=== PATIENT | male | born 1960 | race Caucasian/White ===

== ENCOUNTER → 2018-07-17 09:06 | Outpatient (CLI) | payer OTHER, SELFPAY ==
[2018-07-17 10:51] LABS: Hemoglobin A1C% w Est Avg Glu 5.3 % (4.0-6.0)
[2018-07-17 11:12] LABS: BUN Creatinine Ratio 17.5 (6-22); Blood Urea Nitrogen 14 mg/dL (9-20); Calcium 9.1 mg/dL (8.4-10.2); Carbon Dioxide 36 mmol/L (22-32); Chloride 96 mmol/L (98-107); Cholesterol 185 mg/dL (140-199); Estimated Glomerular Filt Rate > 60.0 mL/min (>60); Glucose 104 mg/dL (70-100); HDL Cholesterol 41 mg/dL (40-60); HEMOLYSIS < 15 (0-50); LDL Cholesterol Calculated 121 mg/dL (<100); Sodium 142 mmol/L (137-145); Triglycerides 114 mg/dL (35-150)
[2018-07-17 11:18] LABS: Potassium 2.7 mmol/L (3.4-5.1)
== END ==
PROVIDERS: Family Provider Family Medicine; PCP Family Medicine; Visit Provider Family Medicine
DX: I10 Essential (primary) hypertension (principal)
CPT/HCPCS: 36415; 80048; 80061; 83036

== ENCOUNTER → 2018-07-21 09:44 | Outpatient (CLI) | payer OTHER, SELFPAY ==
[2018-07-21 11:43] LABS: BUN Creatinine Ratio 17.5 (6-22); Blood Urea Nitrogen 14 mg/dL (9-20); Calcium 9.3 mg/dL (8.4-10.2); Carbon Dioxide 36 mmol/L (22-32); Chloride 97 mmol/L (98-107); Estimated Glomerular Filt Rate > 60.0 mL/min (>60); Glucose 111 mg/dL (70-100); HEMOLYSIS < 15 (0-50); Potassium 3.1 mmol/L (3.4-5.1); Sodium 142 mmol/L (137-145)
== END ==
PROVIDERS: Family Provider Family Medicine; PCP Family Medicine; Visit Provider Family Medicine
DX: E87.6 Hypokalemia (principal)
CPT/HCPCS: 36415; 80048

== ENCOUNTER → 2018-08-10 15:35 | Outpatient (CLI) | payer OTHER, SELFPAY ==
[2018-08-10 17:02] LABS: Blood Urea Nitrogen 19 mg/dL (9-20); Calcium 8.9 mg/dL (8.4-10.2); Carbon Dioxide 32 mmol/L (22-32); Chloride 104 mmol/L (98-107); Estimated Glomerular Filt Rate > 60.0 mL/min (>60); Glucose 133 mg/dL (80-110); HEMOLYSIS < 15 (0-50); Potassium 3.3 mmol/L (3.4-5.1); Sodium 144 mmol/L (137-145)
== END ==
PROVIDERS: Family Provider Family Medicine; PCP Family Medicine; Visit Provider Family Medicine
DX: I10 Essential (primary) hypertension (principal)
CPT/HCPCS: 36415; 80048

== ENCOUNTER → 2018-09-24 09:25 | Outpatient (CLI) | payer OTHER, SELFPAY ==
[2018-09-24 10:15] LABS: Hemoglobin A1C% w Est Avg Glu 5.1 % (4.0-6.0)
[2018-09-24 10:28] LABS: Blood Urea Nitrogen 12 mg/dL (9-20); Calcium 9.1 mg/dL (8.4-10.2); Carbon Dioxide 31 mmol/L (22-32); Chloride 101 mmol/L (98-107); Estimated Glomerular Filt Rate > 60.0 mL/min (>60); Glucose 102 mg/dL (80-110); HEMOLYSIS < 15 (0-50); Potassium 3.2 mmol/L (3.4-5.1); Sodium 143 mmol/L (137-145)
== END ==
PROVIDERS: PCP Family Medicine; Visit Provider Family Medicine
DX: I10 Essential (primary) hypertension (principal)
CPT/HCPCS: 36415; 80048; 83036

== ENCOUNTER → 2018-11-09 09:40 | Outpatient (CLI) | payer OTHER, SELFPAY ==
[2018-11-09 14:52] LABS: Collection Time Urine 24 Hours; Creatinine 24 Hour Urine 2460 mg/day (1000-2000); Creatinine Urine Random 49.2 mg/dL; Sodium 24 Hour Urine 200 mmol/day (40-220); Sodium Urine Random 40 mmol/L (30-90); Total Volume Urine 5000 mL
== END ==
PROVIDERS: PCP Family Medicine; Visit Provider Internal Medicine Nephrology
DX: E26.9 Hyperaldosteronism, unspecified (principal)
CPT/HCPCS: 82088; 82570; 84300

== ENCOUNTER → 2018-11-30 15:46 | Outpatient (CLI) | payer OTHER, SELFPAY ==
[2018-11-30 16:41] LABS: BUN Creatinine Ratio 16.3 (6-22); Blood Urea Nitrogen 13 mg/dL (9-20); Calcium 9.1 mg/dL (8.4-10.2); Carbon Dioxide 33 mmol/L (22-32); Chloride 100 mmol/L (98-107); Estimated Glomerular Filt Rate > 60.0 mL/min (>60); Glucose 93 mg/dL (80-110); HEMOLYSIS 18 (0-50); Potassium 3.2 mmol/L (3.4-5.1); Sodium 141 mmol/L (137-145)
== END ==
PROVIDERS: Family Provider Family Medicine; PCP Family Medicine; Visit Provider Internal Medicine Nephrology
DX: E26.9 Hyperaldosteronism, unspecified (principal)
CPT/HCPCS: 36415; 80048

== ENCOUNTER → 2018-12-01 09:14 | Outpatient (CLI) | payer OTHER, SELFPAY ==
--- NOTE | 2018-12-01 | DI.CT.S_ITS ---
PROCEDURE: CT ABDOMEN WO/W CON INDICATIONS: Hyperaldosteronism, unspecified TECHNIQUE: Noncontrast 3 mm thick sections acquired from the diaphragms to the iliac crests. After the administration of intravenous contrast, 3 mm thick venous-phase and 10-minute delayed images acquired from the diaphragms to the iliac crests. For radiation dose reduction, the following was used: automated exposure control, adjustment of mA and/or kV according to patient size. COMPARISON: None. FINDINGS: Image quality: Excellent. Lung bases: There is minimal dependent atelectasis. Heart size is normal. Adrenal glands: There is mild nodular thickening of the right adrenal gland measuring up to approximately 1 cm in width. This demonstrates absolute washout values of greater than 60% suggestive of an adenoma. No left adrenal nodule. Solid organs: Evaluation of the liver demonstrates no focal hepatic lesions. The gallbladder appears within normal limits without calcified gallstones. There is a small phrygian cap. Biliary system is non-dilated. Pancreas enhances normally. No peripancreatic fat stranding or fluid collections. No pancreatic duct dilatation. The spleen is normal in size. Kidneys demonstrate no hydronephrosis. There is mild nonspecific perinephric stranding bilaterally. Peritoneum and bowel: Visualized bowel loops are normal in caliber and wall thickness. There is colonic diverticulosis without acute diverticulitis. No free fluid or air. Nodes and vessels: No retroperitoneal or mesenteric adenopathy by size criteria. Aorta and inferior vena cava are normal in size. Miscellaneous: No ventral hernias. Bones: No suspicious bony lesions. No vertebral body compression fractures. IMPRESSION: 1. Small right adrenal nodule most likely representing an adenoma. Dictated by: Shreyas Segovia M.D. on 12/01/2018 at 13:35 Approved by: Shreyas Segovia M.D. on 12/01/2018 at 14:00
== END ==
PROVIDERS: Family Provider Family Medicine; PCP Family Medicine; Visit Provider Internal Medicine Nephrology
DX: E27.9 Disorder of adrenal gland, unspecified (principal); E26.9 Hyperaldosteronism, unspecified
CPT/HCPCS: 74170; Q9967

== ENCOUNTER → 2019-02-22 13:51 | Outpatient (CLI) | payer OTHER, SELFPAY ==
[2019-02-22 15:03] LABS: BUN Creatinine Ratio 17.5 (6-22); Blood Urea Nitrogen 14 mg/dL (9-20); Calcium 9.2 mg/dL (8.4-10.2); Carbon Dioxide 31 mmol/L (22-32); Chloride 99 mmol/L (98-107); Estimated Glomerular Filt Rate > 60.0 mL/min (>60); Glucose 129 mg/dL (80-110); HEMOLYSIS < 15 (0-50); Potassium 3.8 mmol/L (3.4-5.1); Sodium 140 mmol/L (137-145)
== END ==
PROVIDERS: PCP Family Medicine; Visit Provider Internal Medicine Nephrology
DX: E26.9 Hyperaldosteronism, unspecified (principal)
CPT/HCPCS: 36415; 80048

== ENCOUNTER → 2019-03-18 12:02 | Outpatient (CLI) | payer OTHER, SELFPAY ==
[2019-03-18 12:53] LABS: Blood Urea Nitrogen 19 mg/dL (9-20); Calcium 9.7 mg/dL (8.4-10.2); Carbon Dioxide 29 mmol/L (22-32); Chloride 100 mmol/L (98-107); Estimated Glomerular Filt Rate > 60.0 mL/min (>60); Glucose 105 mg/dL (80-110); HEMOLYSIS < 15 (0-50); Potassium 4.6 mmol/L (3.4-5.1); Sodium 138 mmol/L (137-145)
== END ==
PROVIDERS: PCP Family Medicine; Visit Provider Internal Medicine Nephrology
DX: E26.9 Hyperaldosteronism, unspecified (principal)
CPT/HCPCS: 36415; 80048

== ENCOUNTER → 2019-04-07 09:47 | Outpatient (CLI) | payer OTHER, SELFPAY ==
[2019-04-07 11:14] LABS: Blood Urea Nitrogen 21 mg/dL (9-20); Calcium 9.9 mg/dL (8.4-10.2); Carbon Dioxide 28 mmol/L (22-32); Chloride 103 mmol/L (98-107); Estimated Glomerular Filt Rate > 60.0 mL/min (>60); Glucose 118 mg/dL (80-110); HEMOLYSIS < 15 (0-50); Potassium 5.1 mmol/L (3.4-5.1); Sodium 140 mmol/L (137-145)
== END ==
PROVIDERS: PCP Family Medicine; Referring Provider Internal Medicine Nephrology; Visit Provider Internal Medicine Nephrology
DX: E26.9 Hyperaldosteronism, unspecified (principal)
CPT/HCPCS: 36415; 80048

== ENCOUNTER → 2019-04-15 11:36 | Outpatient (CLI) | payer OTHER, SELFPAY ==
[2019-04-15 13:19] LABS: BUN Creatinine Ratio 22.3 (6-22); Blood Urea Nitrogen 29 mg/dL (9-20); Calcium 9.6 mg/dL (8.4-10.2); Carbon Dioxide 24 mmol/L (22-32); Chloride 103 mmol/L (98-107); Estimated Glomerular Filt Rate 56.3 mL/min (>60); Glucose 99 mg/dL (80-110); HEMOLYSIS < 15 (0-50); Sodium 141 mmol/L (137-145)
== END ==
PROVIDERS: PCP Family Medicine; Referring Provider Internal Medicine Nephrology; Visit Provider Internal Medicine Nephrology
DX: E26.9 Hyperaldosteronism, unspecified (principal)
CPT/HCPCS: 36415; 80048; 83735

== ENCOUNTER → 2019-04-26 16:32 | Outpatient (CLI) | payer OTHER, SELFPAY ==
[2019-04-26 17:44] LABS: Blood Urea Nitrogen 20 mg/dL (9-20); Calcium 9.6 mg/dL (8.4-10.2); Carbon Dioxide 23 mmol/L (22-32); Chloride 104 mmol/L (98-107); Estimated Glomerular Filt Rate > 60.0 mL/min (>60); Glucose 87 mg/dL (80-110); HEMOLYSIS < 15 (0-50); Potassium 4.8 mmol/L (3.4-5.1); Sodium 139 mmol/L (137-145)
== END ==
PROVIDERS: PCP Family Medicine; Referring Provider Internal Medicine Nephrology; Visit Provider Internal Medicine Nephrology
DX: E26.9 Hyperaldosteronism, unspecified (principal); E27.9 Disorder of adrenal gland, unspecified
CPT/HCPCS: 36415; 80048

== ENCOUNTER → 2019-05-25 11:41 | Outpatient (CLI) | payer OTHER, SELFPAY ==
[2019-05-25 12:56] LABS: Albumin 4.7 g/dL (3.5-5.0); HEMOLYSIS < 15 (0-50); Magnesium 2.1 mg/dL (1.6-2.3)
[2019-05-25 18:56] LABS: BUN Creatinine Ratio 24.5 (6-22); Blood Urea Nitrogen 26 mg/dL (9-20); Calcium 10.1 mg/dL (8.4-10.2); Carbon Dioxide 21 mmol/L (22-32); Chloride 103 mmol/L (98-107); Estimated Glomerular Filt Rate > 60.0 mL/min (>60); Glucose 96 mg/dL (80-110); Phosphorous 4.3 mg/dL (2.3-3.7); Sodium 136 mmol/L (137-145)
[2019-05-25 18:57] LABS: Potassium 5.5 mmol/L (3.4-5.1)
== END ==
PROVIDERS: PCP Family Medicine; Referring Provider Internal Medicine Nephrology; Visit Provider Internal Medicine Nephrology
DX: E26.9 Hyperaldosteronism, unspecified (principal)
CPT/HCPCS: 36415; 80069; 83735

== ENCOUNTER → 2019-06-01 10:00 | Outpatient (CLI) | payer OTHER, SELFPAY ==
[2019-06-01 11:30] LABS: Albumin 4.9 g/dL (3.5-5.0); HEMOLYSIS < 15 (0-50); Magnesium 2.4 mg/dL (1.6-2.3)
[2019-06-01 18:14] LABS: BUN Creatinine Ratio 25.6 (6-22); Blood Urea Nitrogen 32 mg/dL (9-20); Calcium 9.9 mg/dL (8.4-10.2); Carbon Dioxide 22 mmol/L (22-32); Chloride 103 mmol/L (98-107); Estimated Glomerular Filt Rate 58.9 mL/min (>60); Glucose 114 mg/dL (80-110); Sodium 136 mmol/L (137-145)
[2019-06-01 18:15] LABS: Potassium 5.8 mmol/L (3.4-5.1)
== END ==
PROVIDERS: PCP Family Medicine; Referring Provider Internal Medicine Nephrology; Visit Provider Internal Medicine Nephrology
DX: E26.9 Hyperaldosteronism, unspecified (principal)
CPT/HCPCS: 36415; 80069; 83735

== ENCOUNTER → 2019-06-04 10:18 | Outpatient (CLI) | payer OTHER, SELFPAY ==
[2019-06-04 11:41] LABS: BUN Creatinine Ratio 22.3 (6-22); Blood Urea Nitrogen 27 mg/dL (9-20); Calcium 9.9 mg/dL (8.4-10.2); Carbon Dioxide 26 mmol/L (22-32); Chloride 101 mmol/L (98-107); Estimated Glomerular Filt Rate > 60.0 mL/min (>60); Glucose 112 mg/dL (80-110); HEMOLYSIS < 15 (0-50); Magnesium 2.3 mg/dL (1.6-2.3); Phosphorous 4.6 mg/dL (2.3-3.7); Sodium 137 mmol/L (137-145)
[2019-06-04 11:42] LABS: Potassium 5.4 mmol/L (3.4-5.1)
== END ==
PROVIDERS: PCP Family Medicine; Referring Provider Internal Medicine Nephrology; Visit Provider Internal Medicine Nephrology
DX: E87.5 Hyperkalemia (principal); E26.9 Hyperaldosteronism, unspecified
CPT/HCPCS: 36415; 80069; 83735

== ENCOUNTER → 2019-06-09 10:07 | Outpatient (CLI) | payer OTHER, SELFPAY ==
[2019-06-09 12:23] LABS: BUN Creatinine Ratio 21.6 (6-22); Blood Urea Nitrogen 25 mg/dL (9-20); Calcium 9.8 mg/dL (8.4-10.2); Carbon Dioxide 23 mmol/L (22-32); Chloride 104 mmol/L (98-107); Estimated Glomerular Filt Rate > 60.0 mL/min (>60); Glucose 103 mg/dL (80-110); HEMOLYSIS < 15 (0-50); Potassium 5.3 mmol/L (3.4-5.1); Sodium 136 mmol/L (137-145)
== END ==
PROVIDERS: PCP Family Medicine; Referring Provider Internal Medicine Nephrology; Visit Provider Internal Medicine Nephrology
DX: E87.5 Hyperkalemia (principal)
CPT/HCPCS: 36415; 80048

== ENCOUNTER → 2019-06-15 09:45 | Outpatient (CLI) | payer OTHER, SELFPAY ==
[2019-06-15 12:16] LABS: BUN Creatinine Ratio 15.9 (6-22); Blood Urea Nitrogen 17 mg/dL (9-20); Calcium 9.6 mg/dL (8.4-10.2); Carbon Dioxide 26 mmol/L (22-32); Chloride 103 mmol/L (98-107); Estimated Glomerular Filt Rate > 60.0 mL/min (>60); Glucose 105 mg/dL (80-110); HEMOLYSIS < 15 (0-50); Potassium 5.2 mmol/L (3.4-5.1); Sodium 139 mmol/L (137-145)
[2019-06-15 12:44] LABS: Cortisol AM (Before 10AM) 10.1 ug/dL (4.46-22.7)
[2019-06-18 01:07] LABS: Renin Activity 0.642 ng/mL/hr (0.167-5.380)
== END ==
PROVIDERS: PCP Family Medicine; Referring Provider Internal Medicine Nephrology; Visit Provider Internal Medicine Nephrology
DX: E87.5 Hyperkalemia (principal); E89.6 Postprocedural adrenocortical (-medullary) hypofunction
CPT/HCPCS: 36415; 80048; 82088; 82533; 84244

== ENCOUNTER → 2019-07-02 08:23 | Outpatient (CLI) | payer OTHER, SELFPAY ==
[2019-07-02 09:55] LABS: BUN Creatinine Ratio 21.8 (6-22); Blood Urea Nitrogen 27 mg/dL (9-20); Calcium 9.8 mg/dL (8.4-10.2); Carbon Dioxide 25 mmol/L (22-32); Chloride 103 mmol/L (98-107); Estimated Glomerular Filt Rate 59.5 mL/min (>60); Glucose 109 mg/dL (80-110); HEMOLYSIS < 15 (0-50); Potassium 5.2 mmol/L (3.4-5.1); Sodium 138 mmol/L (137-145)
[2019-07-07 01:19] LABS: Plama Renin, LC/MS/MS 0.932 ng/mL/hr (0.167-5.380)
== END ==
PROVIDERS: PCP Family Medicine; Referring Provider Internal Medicine Nephrology; Visit Provider Internal Medicine Nephrology
DX: E87.5 Hyperkalemia (principal); E26.9 Hyperaldosteronism, unspecified
CPT/HCPCS: 36415; 80048; 82088; 84244

== ENCOUNTER → 2019-07-05 11:34 | Outpatient (CLI) | payer OTHER, SELFPAY ==
--- NOTE | 2019-07-05 | DI.MRI.S_ITS ---
PROCEDURE: MR KNEE LT WO CON INDICATIONS: Pain in left knee TECHNIQUE: Noncontrast sagittal PD fast spin echo and T2 fast spin echo with fat saturation, sagittal 3-D FLASH with fat saturation; coronal T1 spin echo and PD fast spin echo with fat saturation, and axial PD fast spin echo with fat saturation through the knee. COMPARISON: [facility], CR, XR KNEE 3 VIEWS LEFT, 06/21/2019, 14:30. FINDINGS: Image quality: Excellent. Menisci: Radial tearing of the posterior horn medial meniscus at the meniscal root ligament insertion site. Amorphous and linear high signal intensity within the medial meniscal body and posterior horn is present, demonstrating inferior articular surface extension, indicating complex tearing. Lateral meniscus is intact. Cruciate ligaments: The anterior and posterior cruciate ligaments appear intact. Medial structures: The medial collateral ligament appears intact. Visualized portions of the pes anserinus tendons appear normal. No abnormal bursal fluid. Lateral structures: The lateral collateral ligament, long and short heads of the biceps femoris tendon appear intact. The popliteus tendon appears normal. Iliotibial band appears normal. Anterior structures: The quadriceps and patellar tendons appear intact. Patellar alignment is normal. No femoral trochlear dysplasia or ventral trochlear prominence. No edema in the infrapatellar fat pad. Bones and cartilage: Mild ill-defined T2 signal elevation within the posterior weightbearing aspect of the medial tibial plateau. Mild diffuse articular cartilage loss overlies the weightbearing aspects of the medial femoral condyle and medial tibial plateau. Severe articular cartilage loss overlies the medial patellar apex. Moderate to cartilage loss overlies the lateral patellar facet inferiorly. Moderate articular cartilage loss overlies the medial facet. Joint space: There is a moderate knee joint effusion and a moderate Keith's cyst. Normal appearing synovial plicae are incidentally noted. IMPRESSION: 1. Medial meniscal tearing as described above. 2. Medial and patellofemoral compartment articular cartilage loss. 3. Knee joint effusion and Keith's cyst. Dictated by: Titi Hawkins M.D. on 07/05/2019 at 15:02 Approved by: Titi Hawkins M.D. on 07/05/2019 at 15:05
== END ==
PROVIDERS: PCP Family Medicine; Referring Provider Family Medicine; Visit Provider Family Medicine
DX: M25.562 Pain in left knee (principal); S83.232A Complex tear of medial meniscus, current injury, left knee, initial encounter; M71.22 Synovial cyst of popliteal space [Baker], left knee; M25.462 Effusion, left knee
CPT/HCPCS: 73721

== ENCOUNTER → 2019-08-10 11:18 | Outpatient (CLI) | payer OTHER, SELFPAY ==
[2019-08-10 12:13] LABS: Add Manual Diff / Slide Review NO; Basophils Absolute Auto 0 /uL (0-100); Eosinophils Absolute Auto 100 /uL (0-450); Eosinophils Percent Auto 1.7 % (2-4); Hematocrit 41.8 % (41-53); Hemoglobin 14.6 g/dL (13.5-17.5); Lymphocytes Absolute Auto 1400 /uL (1100-4500); Lymphocytes Percent Auto 30.7 % (25-40); Mean Corpuscular HGB Conc 34.9 % (30-36); Mean Corpuscular Hemoglobin 31.5 PG (26-34); Mean Corpuscular Volume 90.3 fL (80-100); Monocytes Absolute Auto 300 /uL (0-900); Monocytes Percent Auto 6.3 % (3-14); Neutrophils Absolute Auto 2800 /uL (1500-7000); Neutrophils Percent Auto 60.3 % (50-75); Platelet Count 219 X10^3/uL (150-400); Red Blood Cell Count 4.63 X10^6/uL (4.5-5.9); Red Cell Distribution Width 13.4 % (11.6-14.8); White Blood Cell Count 4.6 X10^3/uL (4.5-11.0)
[2019-08-10 12:35] LABS: Carbon Dioxide 25 mmol/L (22-32); Chloride 104 mmol/L (98-107); HEMOLYSIS < 15 (0-50); Potassium 4.8 mmol/L (3.4-5.1); Sodium 137 mmol/L (137-145)
== END ==
PROVIDERS: PCP Family Medicine; Referring Provider Orthopaedic Surgery; Visit Provider Orthopaedic Surgery
DX: Z01.818 Encounter for other preprocedural examination (principal); Z01.812 Encounter for preprocedural laboratory examination
CPT/HCPCS: 36415; 80051; 85025; 93005

== ENCOUNTER → 2020-08-02 11:06 | Outpatient (CLI) | payer OTHER, SELFPAY ==
[2020-08-02 12:07] LABS: Add Manual Diff / Slide Review NO; Basophils Absolute Auto 0 /uL (0-100); Basophils Percent Auto 0.8 % (0-2); Eosinophils Absolute Auto 100 /uL (0-450); Hematocrit 44.9 % (41-53); Hemoglobin 15.3 g/dL (13.5-17.5); Lymphocytes Absolute Auto 1500 /uL (1100-4500); Mean Corpuscular HGB Conc 34.1 % (30-36); Mean Corpuscular Hemoglobin 30.7 PG (26-34); Mean Corpuscular Volume 90.1 fL (80-100); Monocytes Absolute Auto 400 /uL (0-900); Neutrophils Absolute Auto 2800 /uL (1500-7000); Neutrophils Percent Auto 58.2 % (50-75); Platelet Count 213 X10^3/uL (150-400); Red Blood Cell Count 4.98 X10^6/uL (4.5-5.9); Red Cell Distribution Width 13.7 % (11.6-14.8); White Blood Cell Count 4.9 X10^3/uL (4.5-11.0)
[2020-08-02 12:18] LABS: Hemoglobin A1C% w Est Avg Glu 5.6 % (4.0-6.0)
[2020-08-02 12:21] LABS: Alanine Aminotransferase 19 IU/L (<50); Albumin 4.8 g/dL (3.5-5.0); Albumin Globulin Ratio 1.5 (1.0-2.8); Alkaline Phosphatase 86 U/L (38-126); Aspartate Aminotransferase 31 IU/L (17-59); BUN Creatinine Ratio 20.5 (6-22); Bilirubin Total 0.8 mg/dL (0.2-1.3); Blood Urea Nitrogen 25 mg/dL (9-20); Calcium 9.6 mg/dL (8.4-10.2); Carbon Dioxide 24 mmol/L (22-32); Chloride 103 mmol/L (98-107); Cholesterol 259 mg/dL (140-199); Estimated Glomerular Filt Rate > 60.0 mL/min (>60); Globulin 3.1 g/dL (1.7-4.1); Glucose 118 mg/dL (80-110); HDL Cholesterol 43 mg/dL (40-60); HEMOLYSIS < 15 (0-50); LDL Cholesterol Calculated 183 mg/dL (<100); Potassium 4.9 mmol/L (3.4-5.1); Sodium 137 mmol/L (137-145); Total Protein 7.9 g/dL (6.3-8.2); Triglycerides 167 mg/dL (35-150)
[2020-08-03 23:36] LABS: HCV AB <0.1 s/co ratio (0.0-0.9)
[2020-08-06 18:36] LABS: Renin Activity 2.347 ng/mL/hr (0.167-5.380)
== END ==
PROVIDERS: PCP Family Medicine; Referring Provider Family Medicine; Visit Provider Family Medicine
DX: I10 Essential (primary) hypertension (principal)
CPT/HCPCS: 36415; 80053; 80061; 82088; 83036; 84244; 85025; 86803

== ENCOUNTER 2022-05-17 11:36 | Emergency (ER) | payer OTHER, SELFPAY ==
[2022-05-17] VITALS (54 sets, daily range): BP systolic 151–195; BP diastolic 85–112; PULSE 77–94; RESP 16–20; TEMP 36.2; O2SAT 95–100; BMI 16.8
--- NOTE | 2022-05-17 12:04 | DI.RAD.S_ITS ---
PROCEDURE: XR HUMERUS LT 2V INDICATIONS: fall TECHNIQUE: 3 views of the humerus were acquired. COMPARISON: None. FINDINGS: Bones: There is a linear lucency extending through the medial margin of the proximal ulna seen on the AP view. This may represent a possible fracture of there is focal tenderness in this region. Remainder of the visualized osseous structures appear intact. Soft tissues: No suspicious soft tissue calcifications. IMPRESSION: Possible nondisplaced fracture involving the medial margin of the proximal ulna seen only on the AP view. Recommend clinical correlation for point tenderness in this region. Otherwise, no other fractures identified. Dictated by: Milan Mims M.D. on 05/17/2022 at 13:19 Approved by: Milan Mims M.D. on 05/17/2022 at 13:21
--- NOTE | 2022-05-17 12:04 | DI.RAD.S_ITS ---
PROCEDURE: XR SHOULDER LT MIN 2V INDICATIONS: fall TECHNIQUE: 3 views of the shoulder were acquired. COMPARISON: None. FINDINGS: Bones: No fractures or dislocations. No suspicious bony lesions. Visualized ribs appear intact. Soft tissue calcification adjacent to the superolateral margin of the humeral head compatible with sequela of chronic calcific rotator cuff tendinopathy. Coracoclavicular and acromioclavicular intervals are maintained. Degenerative changes of the acromioclavicular joint. Soft tissues: No suspicious soft tissue calcifications. IMPRESSION: Left shoulder without acute fracture or dislocation. Moderate degenerative changes of the acromioclavicular joint. Findings suggestive of calcific tendinopathy. If there is persistent clinical concern for occult fracture given adequate mechanism of injury, consider repeat imaging in 10-14 days. Dictated by: Milan Mims M.D. on 05/17/2022 at 13:23 Approved by: Milan Mims M.D. on 05/17/2022 at 13:24
--- NOTE | 2022-05-17 12:04 | DI.RAD.S_ITS ---
PROCEDURE: XR FOOT LT MIN 3V INDICATIONS: fall TECHNIQUE: 3 views of the foot were acquired. COMPARISON: None. FINDINGS: Bones: No fractures or dislocations. No suspicious bony lesions. Degenerative changes of the dorsal left midfoot. Soft tissues: No tibiotalar joint effusion. Achilles tendon appears normal. IMPRESSION: Left foot without definite fracture. Normal alignment. If there is persistent clinical concern for occult fracture given adequate mechanism of injury, consider repeat imaging in 10-14 days. Dictated by: Milan Mims M.D. on 05/17/2022 at 13:22 Approved by: Milan Mims M.D. on 05/17/2022 at 13:23
--- NOTE | 2022-05-17 12:04 | DI.RAD.S_ITS ---
PROCEDURE: XR ANKLE LT MIN 3V INDICATIONS: fall TECHNIQUE: 3 views of the ankle were acquired. COMPARISON: None. FINDINGS: Bones: Minimal cortical irregularity involving the distal tip of the left fibula with moderate overlying soft tissue swelling. Ankle mortise is preserved. Overall, normal alignment. Tiny plantar calcaneal enthesophyte. Soft tissues: No tibiotalar joint effusion. Achilles tendon appears normal. IMPRESSION: Possible nondisplaced avulsion fracture of the distal tip of the fibula with overlying soft tissue swelling. Dictated by: Milan Mims M.D. on 05/17/2022 at 13:17 Approved by: Milan Mims M.D. on 05/17/2022 at 13:19
--- NOTE | 2022-05-17 12:04 | DI.CT.S_ITS ---
PROCEDURE: CT CERVICAL SPINE WO CON INDICATIONS: trauma TECHNIQUE: Noncontrast 3 mm thick sections acquired from the skull base to the T4 level. Sagittal and coronal reformats were then constructed. For radiation dose reduction, the following was used: automated exposure control, adjustment of mA and/or kV according to patient size. COMPARISON: None. FINDINGS: Image quality: Good Bones: No fractures or dislocations. Visualized superior ribs are intact. Mild degenerative changes Soft tissues: Prevertebral soft tissues are normal in thickness. No paravertebral hematomas. No apical pneumothoraces. IMPRESSION: Mild degenerative changes. No acute fracture or traumatic subluxation of the cervical spine. If there is high concern for further derangement, consider MRI evaluation. Dictated by: rGaham Macdonald M.D. on 05/17/2022 at 12:56 Approved by: Graham Macdonald M.D. on 05/17/2022 at 12:58
--- NOTE | 2022-05-17 12:04 | DI.CT.S_ITS ---
PROCEDURE: CT HEAD/BRAIN WO CON INDICATIONS: trauma TECHNIQUE: Noncontrast 4.5 mm thick angled axial sections acquired from the foramen magnum to the vertex, with coronal and sagittal reformats. For radiation dose reduction, the following was used: automated exposure control, adjustment of mA and/or kV according to patient size. COMPARISON: None. FINDINGS: Image quality: Good CSF spaces: Basal cisterns are patent. Lateral ventricles are symmetric. Volume: Vascular calcifications. Periventricular white matter disease is commonly seen with chronic microangiopathy. Volume loss is present. These findings are [id number] Brain: A small hyperdensity is seen in the right cerebellum. Craniofacial structures: No displaced fracture. Sinuses are clear. Orbits are intact. IMPRESSION: Possible small hemorrhage versus calcified lesion in the right cerebellum without herniation. Follow-up imaging is recommended Communicated to ED. Dictated by: Graham Macdonald M.D. on 05/17/2022 at 12:50 Approved by: Graham Macdonald M.D. on 05/17/2022 at 12:56
--- NOTE | 2022-05-17 12:04 | DI.CT.S_ITS ---
PROCEDURE: CT CHEST ABD PEL W CON INDICATIONS: fall trauma TECHNIQUE: After the administration of intravenous contrast, 5 mm thick sections acquired from the lung apices to the symphysis. 5 mm coronal and sagittal reformats were performed, with additional 7 mm MIP reformats through the lungs. For radiation dose reduction, the following was used: automated exposure control, adjustment of mA and/or kV according to patient size. COMPARISON: [facility], CT, CT ANGIO CHEST PE, 05/11/2019, 16:53. FINDINGS: Image quality: Good Lungs and pleura: No pneumothorax or hemothorax. No pulmonary nodule identified requiring followup. Micronodules can be optionally followed in 1 year for high risk patients, vs. enrollment in lung cancer screening. For example series 6, image 75. Probably stable from prior. No laceration or contusion. Mediastinum, heart, and esophagus: Small hiatal hernia and distal esophageal wall thickening. No mediastinal hematoma no pathologic adenopathy. Normal heart size. Coronary calcifications. Chest wall and thyroid: No actionable thyroid nodule identified. Unremarkable chest wall Solid organs: Hepatic steatosis. no pathologic biliary or pancreatic ductal dilation. Right adrenal is not seen . no adrenal hematoma. No hydronephrosis. No splenomegaly or laceration. No hepatic laceration. Vessels and lymph nodes: Is no pathologic adenopathy by size criteria. No abdominal aortic aneurysm. There are atherosclerotic calcifications, mild. Bowel and peritoneum: No hemoperitoneum. No bowel obstruction. Body wall: Tiny fat containing umbilical hernia Pelvis: Bladder is unremarkable. Prostate is unremarkable. Bones: No displaced fracture. A small sclerotic lesion is seen in the right iliac wing, indeterminate, possibly a bone island. There might be superior endplate deformity at L3. IMPRESSION: No displaced fracture. Possible superior endplate deformity at L3 (4/55), correlate with any back pain. No acute traumatic abnormality identified otherwise. Other findings as above Approved by: Graham Macdonald M.D. on 05/17/2022 at 13:12
[2022-05-17] MEDS: HYDROMORPHONE 1 MG INJ IV ×3 (12:12→15:58)
[2022-05-17 12:20] LABS: Add Manual Diff / Slide Review NO; Basophils Absolute Auto 0 /uL (0-100); Basophils Percent Auto 0.3 % (0-2); Eosinophils Absolute Auto 100 /uL (0-450); Eosinophils Percent Auto 1.3 % (2-4); Hematocrit 47.8 % (41-53); Hemoglobin 16.5 g/dL (13.5-17.5); Lymphocytes Absolute Auto 1700 /uL (1100-4500); Lymphocytes Percent Auto 22.3 % (25-40); Mean Corpuscular HGB Conc 34.6 % (30-36); Mean Corpuscular Hemoglobin 31.2 PG (26-34); Mean Corpuscular Volume 90.1 fL (80-100); Monocytes Absolute Auto 600 /uL (0-900); Monocytes Percent Auto 7.2 % (3-14); Neutrophils Absolute Auto 5400 /uL (1500-7000); Neutrophils Percent Auto 68.9 % (50-75); Platelet Count 212 X10^3/uL (150-400); Red Cell Distribution Width 13.6 % (11.6-14.8); White Blood Cell Count 7.8 X10^3/uL (4.5-11.0)
[2022-05-17 12:29] LABS: Alanine Aminotransferase 28 IU/L (<50); Albumin 4.5 g/dL (3.5-5.0); Albumin Globulin Ratio 1.4 (1.0-2.8); Alkaline Phosphatase 80 U/L (38-126); Aspartate Aminotransferase 36 IU/L (17-59); BUN Creatinine Ratio 17.4 (6-22); Blood Urea Nitrogen 19 mg/dL (9-20); Calcium 9.1 mg/dL (8.4-10.2); Carbon Dioxide 21 mmol/L (22-32); Chloride 103 mmol/L (98-107); Estimated Glomerular Filt Rate > 60 mL/min (>60); Globulin 3.2 g/dL (1.7-4.1); Glucose 133 mg/dL (80-110); HEMOLYSIS 19 (0-50); Potassium 4.5 mmol/L (3.4-5.1); Sodium 136 mmol/L (137-145); Total Protein 7.7 g/dL (6.3-8.2)
--- NOTE | 2022-05-17 13:46 | ED.TRAUMA ---
HPI - Trauma General Chief Complaint: Trauma Stated Complaint: fall off ladder 20ft/head lac, LOC, arm/back pain Time Seen by Provider: 05/17/22 11:59 Source: patient Mode of arrival: Wheelchair History of Present Illness HPI narrative: Patient is a 61-year-old male who presents as a modified trauma. He fell off a ladder going 20 ft landing on his head in the left side of his body. He is not on antiplatelet or anticoagulation. He maybe had a brief loss of consciousness no nausea or vomiting. No numbness tingling or weakness. He is complaining of left arm pain and left ankle pain and back pain Related Data Previous Rx's Medication Instructions Recorded hydrocodone 5 mg-acetaminophen 325 1 tab PO Q6H PRN pain #20 tabs 05/17/22 mg tablet Allergies Allergy/AdvReac Type Severity Reaction Status Date / Time Sulfa (Sulfonamide Allergy HIVES Verified 12/25/21 15:28 Antibiotics) Review of Systems Review of Systems ROS Unobtainable: All systems reviewed & are unremarkable except as noted in HPI and below Patient History Medical History Hyperaldosteronism, unspecified Hypertension Obesity (BMI 30-39.9) Obstructive sleep apnea Social History Smoking Status: Never smoker Smoking Status: Never smoker alcohol intake frequency: 0-2 drinks per day Substance Use Type: does not use Exam Initial Vital Signs Initial Vital Signs: Vital Signs Temperature 97.2 F L 05/17/22 11:40 Pulse Rate 94 H 05/17/22 11:40 Respiratory Rate 18 05/17/22 11:40 Blood Pressure 175/105 H 05/17/22 11:40 Pulse Oximetry 100 05/17/22 11:40 Oxygen Delivery Method Room Air 05/17/22 11:40 GENERAL: Well-appearing, well-nourished and in no acute distress. HEENT: Head abrasion left hairline,, EOMI, pupils reactive, face symmetric, moist mucous membranes, NECK: Supple, full range of motion, no step-offs, nontender on vertebrae CARDIOVASCULAR: Regular rate and rhythm without murmurs, rubs or gallops. RESPIRATORY: Breath sounds equal bilaterally, no wheezes rales or rhonchi. No crepitations, no subcutaneous air, chest is nontender, no signs of trauma ABDOMEN: Soft, nontender. Normoactive bowel sounds all 4 quadrants. No guarding or rebound. BACK: Tender L3-5 vertebrae, no step-offs, no contusions PELVIS: stable. EXTREMITIES: Normal range of motion, no clubbing or edema. Right upper extremity: Within normal limits Left upper extremity: Abrasion mid shaft humerus, distal radial pulse intact able to flex and extend elbow Right lower extremity: Within normal limits Left lower extremity: Swelling left lower extremity tender to touch distal pedal pulse intact more tender laterally medially knee is within normal limits able flex extend on NEUROLOGICAL: Cranial nerves II through XII grossly intact. Normal gait and speech. SKIN: Warm, dry, no petechiae, no rashes or lesions, no contusions or ecchymosis Procedures Orthopedic Splinting/Casting Injury #1: Side: left Lower Extremity Injury Location: ankle Lower Extremity Immobilizer: boot orthosis Post splinting neuro exam: intact Post splinting vascular exam: intact Placed by: Nursing Injury #2: Side: left Upper Extremity Injury Location: elbow Upper Extremity Immobilizer: sling/shoulder immobilizer Post splinting neuro exam: intact Post splinting vascular exam: intact Placed by: Nursing Course Orders Ordered: Discontinued Medications Hydromorphone HCl (Hydromorphone 1 Mg Inj) 1 mg IV NOW ONE Stop: 05/17/22 12:06 Last Admin: 05/17/22 12:12 Dose: 1 mg Documented By: CHANI Hydromorphone HCl (Hydromorphone 1 Mg Inj) 1 mg IV NOW ONE Stop: 05/17/22 13:49 Last Admin: 05/17/22 14:06 Dose: 1 mg Documented By: NR Hydromorphone HCl (Hydromorphone 1 Mg Inj) 1 mg IV NOW ONE Stop: 05/17/22 15:18 Last Admin: 05/17/22 15:58 Dose: 1 mg Documented By: NR Vital Signs Vital signs: Vital Signs - 8 hr 05/17/22 11:40 05/17/22 11:45 05/17/22 11:46 Temperature 97.2 F L Pulse Rate 94 H 92 H 90 Respiratory Rate 18 Blood Pressure 175/105 H Pulse Oximetry 100 97 97 Oxygen Delivery Method Room Air 05/17/22 11:46 05/17/22 11:50 05/17/22 11:50 Temperature Pulse Rate 94 H Respiratory Rate 20 Blood Pressure 166/106 H 170/112 H Pulse Oximetry 97 Oxygen Delivery Method Room Air 05/17/22 11:55 05/17/22 11:55 05/17/22 12:00 Temperature Pulse Rate 91 H Respiratory Rate Blood Pressure 172/103 H 158/102 H Pulse Oximetry 96 Oxygen Delivery Method 05/17/22 12:00 05/17/22 12:05 05/17/22 12:05 Temperature Pulse Rate 86 86 Respiratory Rate Blood Pressure 156/101 H Pulse Oximetry 96 97 Oxygen Delivery Method 05/17/22 12:10 05/17/22 12:10 05/17/22 12:15 Temperature Pulse Rate 85 Respiratory Rate Blood Pressure 157/105 H 164/103 H Pulse Oximetry 96 Oxygen Delivery Method 05/17/22 12:15 05/17/22 12:20 05/17/22 13:04 Temperature Pulse Rate 86 90 Respiratory Rate Blood Pressure Pulse Oximetry 97 96 97 Oxygen Delivery Method 05/17/22 13:05 05/17/22 13:05 05/17/22 13:10 Temperature Pulse Rate 80 Respiratory Rate Blood Pressure 165/97 H 159/92 H Pulse Oximetry 98 Oxygen Delivery Method 05/17/22 13:10 05/17/22 13:15 05/17/22 13:15 Temperature Pulse Rate 80 78 Respiratory Rate Blood Pressure 154/89 H Pulse Oximetry 96 97 Oxygen Delivery Method 05/17/22 13:20 05/17/22 13:20 05/17/22 13:25 Temperature Pulse Rate 87 83 Respiratory Rate 16 Blood Pressure 155/93 H Pulse Oximetry 97 97 Oxygen Delivery Method 05/17/22 13:25 05/17/22 13:30 05/17/22 13:30 Temperature Pulse Rate 84 Respiratory Rate Blood Pressure 171/99 H 169/96 H Pulse Oximetry 96 Oxygen Delivery Method 05/17/22 13:35 05/17/22 13:35 05/17/22 13:40 Temperature Pulse Rate 82 Respiratory Rate Blood Pressure 169/97 H 163/92 H Pulse Oximetry 96 Oxygen Delivery Method 05/17/22 13:40 05/17/22 13:45 05/17/22 13:45 Temperature Pulse Rate 78 77 Respiratory Rate Blood Pressure 165/95 H Pulse Oximetry 98 98 Oxygen Delivery Method 05/17/22 13:50 05/17/22 13:50 05/17/22 13:55 Temperature Pulse Rate 78 Respiratory Rate Blood Pressure 166/98 H 173/103 H Pulse Oximetry 97 Oxygen Delivery Method 05/17/22 13:55 05/17/22 14:00 05/17/22 14:00 Temperature Pulse Rate 89 86 Respiratory Rate Blood Pressure 172/102 H Pulse Oximetry 97 99 Oxygen Delivery Method 05/17/22 14:05 05/17/22 14:05 05/17/22 14:10 Temperature Pulse Rate 84 87 Respiratory Rate Blood Pressure 173/100 H Pulse Oximetry 100 99 Oxygen Delivery Method 05/17/22 14:10 05/17/22 14:15 05/17/22 14:15 Temperature Pulse Rate 87 Respiratory Rate Blood Pressure 175/100 H 172/93 H Pulse Oximetry 98 Oxygen Delivery Method 05/17/22 14:20 05/17/22 14:20 05/17/22 14:25 Temperature Pulse Rate 82 84 Respiratory Rate Blood Pressure 171/97 H Pulse Oximetry 99 99 Oxygen Delivery Method 05/17/22 14:25 05/17/22 14:30 05/17/22 14:30 Temperature Pulse Rate 80 Respiratory Rate Blood Pressure 173/95 H 178/105 H Pulse Oximetry 99 Oxygen Delivery Method 05/17/22 14:35 05/17/22 14:35 05/17/22 14:40 Temperature Pulse Rate 81 Respiratory Rate Blood Pressure 179/103 H 175/107 H Pulse Oximetry 98 Oxygen Delivery Method 05/17/22 14:40 05/17/22 14:45 05/17/22 14:45 Temperature Pulse Rate 88 82 Respiratory Rate Blood Pressure 162/89 H Pulse Oximetry 100 98 Oxygen Delivery Method 05/17/22 14:50 05/17/22 14:50 05/17/22 14:55 Temperature Pulse Rate 82 81 Respiratory Rate Blood Pressure 169/94 H Pulse Oximetry 98 98 Oxygen Delivery Method 05/17/22 14:55 05/17/22 15:00 05/17/22 15:00 Temperature Pulse Rate 82 Respiratory Rate Blood Pressure 167/89 H 168/93 H Pulse Oximetry 98 Oxygen Delivery Method 05/17/22 15:05 05/17/22 15:05 05/17/22 15:10 Temperature Pulse Rate 82 Respiratory Rate Blood Pressure 164/91 H 159/89 H Pulse Oximetry 99 Oxygen Delivery Method 05/17/22 15:10 05/17/22 15:15 05/17/22 15:15 Temperature Pulse Rate 82 85 Respiratory Rate Blood Pressure 179/105 H Pulse Oximetry 96 99 Oxygen Delivery Method 05/17/22 15:20 05/17/22 15:20 05/17/22 15:25 Temperature Pulse Rate 86 Respiratory Rate Blood Pressure 180/97 H 175/99 H Pulse Oximetry 100 Oxygen Delivery Method 05/17/22 15:25 05/17/22 15:30 05/17/22 15:30 Temperature Pulse Rate 82 82 Respiratory Rate Blood Pressure 174/90 H Pulse Oximetry 99 97 Oxygen Delivery Method 05/17/22 15:35 05/17/22 15:35 05/17/22 15:40 Temperature Pulse Rate 84 83 Respiratory Rate Blood Pressure 175/93 H Pulse Oximetry 99 99 Oxygen Delivery Method 05/17/22 15:40 05/17/22 15:45 05/17/22 15:45 Temperature Pulse Rate 83 Respiratory Rate Blood Pressure 175/95 H 195/92 H Pulse Oximetry 100 Oxygen Delivery Method 05/17/22 15:50 05/17/22 15:50 05/17/22 15:55 Temperature Pulse Rate 87 84 Respiratory Rate Blood Pressure 181/95 H Pulse Oximetry 99 99 Oxygen Delivery Method 05/17/22 15:55 05/17/22 15:56 05/17/22 15:56 Temperature Pulse Rate 89 Respiratory Rate Blood Pressure 184/100 H 157/85 H Pulse Oximetry 99 Oxygen Delivery Method 05/17/22 16:08 05/17/22 16:15 05/17/22 16:30 Temperature Pulse Rate 91 H 84 85 Respiratory Rate Blood Pressure Pulse Oximetry 95 98 97 Oxygen Delivery Method 05/17/22 16:45 05/17/22 17:00 Temperature Pulse Rate 84 85 Respiratory Rate Blood Pressure Pulse Oximetry 98 98 Oxygen Delivery Method MDM - Trauma Lab Data 05/17/22 11:58 05/17/22 11:58 Labs: Lab Results 05/17/22 05/17/22 05/17/22 Range/Units 11:58 11:58 13:20 WBC 7.8 (4.5-11.0) X10^3/uL RBC 5.30 (4.5-5.9) X10^6/uL Hgb 16.5 (13.5-17.5) g/dL Hct 47.8 (41-53) % MCV 90.1 (80-100) fL MCH 31.2 (26-34) PG MCHC 34.6 (30-36) % RDW 13.6 (11.6-14.8) % Plt Count 212 (150-400) X10^3/uL Neut % (Auto) 68.9 (50-75) % Lymph % (Auto) 22.3 L (25-40) % [place] % (Auto) 7.2 (3-14) % Eos % (Auto) 1.3 L (2-4) % Baso % (Auto) 0.3 (0-2) % Neut # (Auto) 5400 (2443-6753) /uL Lymph # (Auto) 1700 (6532-8248) /uL [place] # (Auto) 600 (0-900) /uL Eos # (Auto) 100 (0-450) /uL Baso # (Auto) 0 (0-100) /uL Sodium 136 L (137-145) mmol/L Potassium 4.5 (3.4-5.1) mmol/L Chloride 103 (98-107) mmol/L Carbon Dioxide 21 L (22-32) mmol/L BUN 19 (9-20) mg/dL Creatinine 1.09 (0.66-1.25) mg/dL Estimated GFR > 60 (>60) mL/min BUN/Creatinine Ratio 17.4 (6-22) Glucose 133 H (80-110) mg/dL Calcium 9.1 (8.4-10.2) mg/dL Total Bilirubin 1.0 (0.2-1.3) mg/dL AST 36 (17-59) IU/L ALT 28 (<50) IU/L Alkaline Phosphatase 80 (38-126) U/L Total Protein 7.7 (6.3-8.2) g/dL Albumin 4.5 (3.5-5.0) g/dL Globulin 3.2 (1.7-4.1) g/dL Albumin/Globulin Ratio 1.4 (1.0-2.8) SARS-CoV-2 (PCR) Negative (Negative) Imaging Data CT scan - head: Radiologist's Impression: PROCEDURE:? CT HEAD/BRAIN WO CON ? INDICATIONS:? trauma ? TECHNIQUE:? Noncontrast 4.5 mm thick angled axial sections acquired from the foramen magnum to the vertex, with coronal and sagittal reformats.? For radiation dose reduction, the following was used:? automated exposure control, adjustment of mA and/or kV according to patient size.? ? COMPARISON:? None. ? FINDINGS:? Image quality:? Good ? CSF spaces: Basal cisterns are patent. Lateral ventricles are symmetric. Volume:? Vascular calcifications. Periventricular white matter disease is commonly seen with chronic microangiopathy. Volume loss is present. These findings are [id number] ? ? Brain:? A small hyperdensity is seen in the right cerebellum. ? Craniofacial structures: No displaced fracture. Sinuses are clear. Orbits are intact. ? IMPRESSION:? Possible small hemorrhage versus calcified lesion in the right cerebellum without herniation.? Follow-up imaging is recommended ? ? Communicated to ED. ? Dictated by: Graham Macdonald M.D. on 05/17/2022 at 12:50 ? ? CT - cervical spine: Radiologist's Impression: PROCEDURE:? CT CERVICAL SPINE WO CON ? INDICATIONS:? trauma ? TECHNIQUE:? Noncontrast 3 mm thick sections acquired from the skull base to the T4 level.? Sagittal and coronal reformats were then constructed.? For radiation dose reduction, the following was used:? automated exposure control, adjustment of mA and/or kV according to patient size.? ? COMPARISON:? None. ? FINDINGS:? Image quality:? Good ? Bones:? No fractures or dislocations.? Visualized superior ribs are intact.? Mild degenerative changes ? Soft tissues:? Prevertebral soft tissues are normal in thickness.? No paravertebral hematomas.? No apical pneumothoraces.? ? ? IMPRESSION:? Mild degenerative changes.? No acute fracture or traumatic subluxation of the cervical spine.? If there is high concern for further derangement, consider MRI evaluation. ? Dictated by: Graham Macdonald M.D. on 05/17/2022 at 12:56 ? ? CT scan - abdomen/pelvis: Radiologist's Impression: PROCEDURE:? CT CHEST ABD PEL W CON ? INDICATIONS:? fall trauma ? TECHNIQUE:? After the administration of intravenous contrast, 5 mm thick sections acquired from the lung apices to the symphysis.? 5 mm coronal and sagittal reformats were performed, with additional 7 mm MIP reformats through the lungs.? For radiation dose reduction, the following was used:? automated exposure control, adjustment of mA and/or kV according to patient size.? ? COMPARISON:? [facility], CT, CT ANGIO CHEST PE, 05/11/2019, 16:53. ? FINDINGS:? Image quality:? Good ? Lungs and pleura:? No pneumothorax or hemothorax.? No pulmonary nodule identified requiring followup. Micronodules can be optionally followed in 1 year for high risk patients, vs. enrollment in lung cancer screening.? For example series 6, image 75. Probably stable from prior.? No laceration or contusion.? ? Mediastinum, heart, and esophagus:? Small hiatal hernia and distal esophageal wall thickening.? No mediastinal hematoma no pathologic adenopathy.? Normal heart size.? Coronary calcifications. ? Chest wall and thyroid:? No actionable thyroid nodule identified.? Unremarkable chest wall ? Solid organs:? Hepatic steatosis. no pathologic biliary or pancreatic ductal dilation.? Right adrenal is not seen .? no adrenal hematoma. No hydronephrosis.? No splenomegaly or laceration.? No hepatic laceration. ? Vessels and lymph nodes:? Is no pathologic adenopathy by size criteria.? No abdominal aortic aneurysm.? There are atherosclerotic calcifications, mild. ? Bowel and peritoneum:? No hemoperitoneum.? No bowel obstruction. ? Body wall:? Tiny fat containing umbilical hernia ? Pelvis:? Bladder is unremarkable.? Prostate is unremarkable. ? Bones:? No displaced fracture.? A small sclerotic lesion is seen in the right iliac wing, indeterminate, possibly a bone island.? There might be superior endplate deformity at L3. ? IMPRESSION:? No displaced fracture.? Possible superior endplate deformity at L3 (4/55), correlate with any back pain. ? No acute traumatic abnormality identified otherwise. Other findings as above ? Approved by: Graham Macdonald M.D. on 05/17/2022 at 13:12? Extremity x-ray #1: Radiologist's Impression: PROCEDURE:? XR ANKLE LT MIN 3V ? INDICATIONS:? fall ? TECHNIQUE:? 3 views of the ankle were acquired.? ? COMPARISON:? None. ? FINDINGS:? ? Bones:? Minimal cortical irregularity involving the distal tip of the left fibula with moderate overlying soft tissue swelling.? Ankle mortise is preserved.? Overall, normal alignment.? Tiny plantar calcaneal enthesophyte. ? Soft tissues:? No tibiotalar joint effusion.? Achilles tendon appears normal.? ? ? IMPRESSION:? Possible nondisplaced avulsion fracture of the distal tip of the fibula with overlying soft tissue swelling. ? Dictated by: Milan Mims M.D. on 05/17/2022 at 13:17 ? ? Approved by: Milan Mims M.D. on 05/17/2022 at 13:19 ? Extremity x-ray #2: Radiologist's Impression: PROCEDURE:? XR FOOT LT MIN 3V ? INDICATIONS:? fall ? TECHNIQUE:? 3 views of the foot were acquired.? ? COMPARISON:? None. ? FINDINGS:? ? Bones:? No fractures or dislocations.? No suspicious bony lesions.? Degenerative changes of the dorsal left midfoot.? ? Soft tissues:? No tibiotalar joint effusion.? Achilles tendon appears normal.? ? ? IMPRESSION:? Left foot without definite fracture.? Normal alignment. ? If there is persistent clinical concern for occult fracture given adequate mechanism of injury, consider repeat imaging in 10-14 days. ? ? ? Dictated by: Milan Mims M.D. on 05/17/2022 at 13:22 ? ? Extremity x-ray #3: Radiologist's Impression: PROCEDURE:? XR HUMERUS LT 2V ? INDICATIONS:? fall ? TECHNIQUE:? 3 views of the humerus were acquired.? ? COMPARISON:? None. ? FINDINGS:? ? Bones:? There is a linear lucency extending through the medial margin of the proximal ulna seen on the AP view.? This may represent a possible fracture of there is focal tenderness in this region. Remainder of the visualized osseous structures appear intact. ? Soft tissues:? No suspicious soft tissue calcifications.? ? IMPRESSION:? Possible nondisplaced fracture involving the medial margin of the proximal ulna seen only on the AP view.? Recommend clinical correlation for point tenderness in this region.? Otherwise, no other fractures identified. ? ? Dictated by: Milan Mims M.D. on 05/17/2022 at 13:19 ?? PROCEDURE:? XR SHOULDER LT MIN 2V ? INDICATIONS:? fall ? TECHNIQUE:? 3 views of the shoulder were acquired.? ? COMPARISON:? None. ? FINDINGS:? ? Bones:? No fractures or dislocations.? No suspicious bony lesions.? Visualized ribs appear intact. Soft tissue calcification adjacent to the superolateral margin of the humeral head compatible with sequela of chronic calcific rotator cuff tendinopathy. Coracoclavicular and acromioclavicular intervals are maintained.? Degenerative changes of the acromioclavicular joint.? ? Soft tissues:? No suspicious soft tissue calcifications.? ? IMPRESSION:? Left shoulder without acute fracture or dislocation.? Moderate degenerative changes of the acromioclavicular joint.? Findings suggestive of calcific tendinopathy. ? If there is persistent clinical concern for occult fracture given adequate mechanism of injury, consider repeat imaging in 10-14 days. ? ? ? Dictated by: Milan Mims M.D. on 05/17/2022 at 13:23 ?? [facility] [place] Narrative Medical decision making narrative: Patient is a 61-year-old male who presents as a modified trauma falling about 20 ft off a ladder landing on his left side. There is an abrasion on the top of head head CT cervical spine are negative. CT chest abdomen pelvis reveal probable L3 endplate fracture he is tender over that area. No neurologic deficits. Eyes also found to have a left distal fibular fracture and left proximal ulnar fracture. No gross bony deformities in either placed mild swelling. He is placed in a walking boot and a sling. He is given multiple doses of Dilaudid to help with pain. He is ambulatory on the walking boot. Blood work is overall reassuring. No evidence of leukocytosis or anemia no significant electrolyte abnormality or PABLO. He is given hydrocodone to home with. Discharge Plan Departure Patient Disposition: Home Clinical Impression: Closed L3 vertebral fracture, Closed left fibular fracture, Ulnar fracture Instructions: DI for Concussion, Ankle Fracture, DI for Vertebral Fracture Activity Restrictions/Additional Instructions: *You have been diagnosed with left ankle fracture, left ulnar fracture, L3 compression fracture *What to do: At this time expect to be in pain. Increase activity as tolerated were boot and sling at all times. You will need to follow-up orthopedics *Continue to take medications as directed --> SENT TO Count includes the [facility] 1 tablet every 6 hours if needed for severe *Follow up with your primary care provider in 2-3 days or call [phone] Call orthopedics tomorrow to schedule follow-up appointment *Return to ER if you should have increasing pain numbness tingling weakness confusion [or] any new, worsening or concerning symptoms CONTROLLED SUBSTANCE DISCHARGE (Narcotoic/benzodiazepine/Flexeril/Phenergan) 1. You have been prescribed narcotic medications, it does have acetaminophen/Tylenol/paracetamol in it, DO NOT TAKE MORE THAN 4,00mg in 24 hours of Tylenol. TRAMADOL DOES NOT CONTAIN TYLENOL 2. Please understand that we cannot provide further refills of narcotics, benzodiazepines or controlled substances through the ED and her pain management will need to be through your provider. 3. While on these medications you cannot drive or operate heavy machinery. 4. You cannot sign legal documents or perform any duties such as this. 5. As long as you're taking opiate pain medications he should also be taking a stool softener such as Colace, Dulcolax, MiraLAX or prune juice, to help avoid constipation. Prescriptions: New hydrocodone-acetaminophen 5-325 mg tablet 1 tab PO Q6H PRN (Reason: pain) Qty: 20 0RF Referrals: Feliz Garvey MD [Primary Care Provider] - [place] Ojeda MD [Physician] - Stand Alone Forms: Patient Portal/API
[2022-05-17 14:09] LABS: COVID19 -Nasal RAPID Negative (Negative)
--- NOTE | 2022-05-17 16:00 | DI.CT.S_ITS ---
PROCEDURE: CT HEAD/BRAIN WO CON INDICATIONS: repeat for bleed TECHNIQUE: Noncontrast 4.5 mm thick angled axial sections acquired from the foramen magnum to the vertex, with coronal and sagittal reformats. For radiation dose reduction, the following was used: automated exposure control, adjustment of mA and/or kV according to patient size. COMPARISON: [facility], CT, CT HEAD/BRAIN WO CON, 05/17/2022, 12:13. FINDINGS: Image quality: Excellent. CSF spaces: Basal cisterns are patent. No extra-axial fluid collections. Ventricles are normal in size and shape. Brain: No midline shift. No change in right cerebellar high density focus. Castro-white matter interface is normal. Skull and face: Calvarium and visualized facial bones are intact, without suspicious lesions. Sinuses: Visualized sinuses and mastoids are clear. IMPRESSION: 1. No change in right cerebellar calcification versus hemorrhage. Dictated by: Titi Hawkins M.D. on 05/17/2022 at 16:08 Approved by: Titi Hawkins M.D. on 05/17/2022 at 16:10
--- NOTE | 2022-05-17 16:08 | PC.NURSE ---
pt to ct. repeat of head to r/o bleed
== END 2022-05-17 18:21 | disposition home or self-care (01) ==
PROVIDERS: Emergency Provider Emergency Medicine; PCP Family Medicine
DX: S32.039A Unspecified fracture of third lumbar vertebra, initial encounter for closed fracture (principal); S82.402A Unspecified fracture of shaft of left fibula, initial encounter for closed fracture; S52.202A Unspecified fracture of shaft of left ulna, initial encounter for closed fracture; W11.XXXA Fall on and from ladder, initial encounter; Z20.822 Contact with and (suspected) exposure to COVID-19
CPT/HCPCS: 36415; 70450; 71260; 72125; 73030; 73060; 73610; 73630; 74177; 80053; 85025; 87635; 96374; 96376; 99285; C9803; J1170; Q9967

== ENCOUNTER → 2022-08-30 08:58 | Outpatient (CLI) | payer OTHER, SELFPAY ==
[2022-08-30 10:13] LABS: Blood Urea Nitrogen 15 mg/dL (9-20); Calcium 8.8 mg/dL (8.4-10.2); Carbon Dioxide 25 mmol/L (22-32); Chloride 104 mmol/L (98-107); Cholesterol 261 mg/dL (140-199); Estimated Glomerular Filt Rate > 60 mL/min (>60); Glucose 105 mg/dL (80-110); HDL Cholesterol 43 mg/dL (40-60); HEMOLYSIS 26 (0-50); LDL Cholesterol Calculated 181 mg/dL (<100); Potassium 4.7 mmol/L (3.4-5.1); Sodium 137 mmol/L (137-145); Triglycerides 183 mg/dL (35-150)
[2022-08-31 08:39] LABS: Labcorp Hemoglobin (Hb) A1c 5.7 % (4.8-5.6)
== END ==
PROVIDERS: PCP Family Medicine; Referring Provider Family Medicine; Visit Provider Family Medicine
DX: I10 Essential (primary) hypertension (principal)
CPT/HCPCS: 36415; 80048; 80061; 83036

== ENCOUNTER → 2023-03-22 10:17 | Outpatient (CLI) | payer OTHER, SELFPAY ==
[2023-03-22 16:11] LABS: BUN Creatinine Ratio 21.6 (6-22); Blood Urea Nitrogen 24 mg/dL (9-20); Calcium 9.6 mg/dL (8.4-10.2); Carbon Dioxide 25 mmol/L (22-32); Chloride 100 mmol/L (98-107); Cholesterol 205 mg/dL (140-199); Estimated Glomerular Filt Rate > 60 mL/min (>60); Glucose 106 mg/dL (80-110); HDL Cholesterol 41 mg/dL (40-60); HEMOLYSIS < 15 (0-50); LDL Cholesterol Calculated 128 mg/dL (<100); Potassium 5.2 mmol/L (3.4-5.1); Sodium 136 mmol/L (137-145); Triglycerides 178 mg/dL (35-150)
== END ==
LOC: LAB 10:18
PROVIDERS: PCP Family Medicine; Referring Provider Family Medicine; Visit Provider Family Medicine
DX: I10 Essential (primary) hypertension (principal); E78.5 Hyperlipidemia, unspecified
CPT/HCPCS: 36415; 80048; 80061

== ENCOUNTER → 2024-07-13 08:47 | Outpatient (CLI) | payer OTHER, SELFPAY ==
[2024-07-13 09:36] LABS: Blood Urea Nitrogen 16 mg/dL (9-20); Calcium 9.1 mg/dL (8.4-10.2); Carbon Dioxide 26 mmol/L (22-32); Chloride 101 mmol/L (98-107); Cholesterol 176 mg/dL (140-199); Estimated Glomerular Filt Rate > 60 mL/min (>60); Glucose 117 mg/dL (70-99); HDL Cholesterol 42 mg/dL (40-60); HEMOLYSIS < 15 (0-50); LDL Cholesterol Calculated 94 mg/dL (<100); Potassium 4.8 mmol/L (3.4-5.1); Sodium 137 mmol/L (137-145); Triglycerides 200 mg/dL (35-150)
[2024-07-13 10:05] LABS: Thyroid Stimulating Hormone 1.66 uIU/mL (0.47-4.68)
== END ==
PROVIDERS: PCP Family Medicine; Referring Provider Family Medicine; Visit Provider Family Medicine
DX: E78.5 Hyperlipidemia, unspecified (principal); R53.81 Other malaise
CPT/HCPCS: 36415; 80048; 80061; 84402; 84403; 84443